=== PATIENT | female | born 1980 | race Caucasian/White ===

== ENCOUNTER 2016-09-16 11:43 | Day surgery (SDC) | payer OTHER ==
[~2016-09-16 11:43] MED LIST: ALPR0.5T PO; CYCL10TA2 PO; HYDR-971 PO; METF-620 PO; OMEP20CA5 PO; Oxycodone Hcl/Acetaminophen PO; RANI150T6 PO; VENTOLIN HFA18 GM IH
[2016-09-16] MEDS ORDERED: IV RINGERS,LACTATED 1000ML 1,000 ML IV SCH (11:48)
[2016-09-16] MEDS ORDERED: LIDOCAINE 1% 1 ML SYRINGE. ID PRN (12:00)
[2016-09-16] MEDS ORDERED: ONDANSETRON PF 4 MG/2 ML VIAL. IV PRN (12:00)
[2016-09-16] MEDS ORDERED: HYDROmorphone 2 MG/ML VIAL IV PRN (12:00)
[2016-09-16] MEDS ORDERED: fentaNYL PF VIAL 100 MCG/2 ML VIAL IV PRN (12:00)
[2016-09-16] MEDS ORDERED: PROCHLORPERAZINE 10 MG/2 ML VIAL. IV PRN (12:00)
[2016-09-16] MEDS ORDERED: PRAM0.255 PO (12:16)
[2016-09-16] MEDS ORDERED: METF100010 PO (12:17)
[2016-09-16] MEDS ORDERED: PROAIR HFA8.5 GM INH (12:17)
[2016-09-16] MEDS ORDERED: fentaNYL PF VIAL 100 MCG/2 ML VIAL ONE (12:37)
[2016-09-16] MEDS ORDERED: DESFLURANE 31 TO 60 MINUTES IH ONE (12:38)
[2016-09-16] MEDS ORDERED: ONDANSETRON PF 4 MG/2 ML VIAL. ONE (12:38)
[2016-09-16] MEDS ORDERED: LIDOCAINE 2% PF Vial for OR 5 ML VIAL. ONE ×2 (12:38→13:23)
[2016-09-16] MEDS ORDERED: DEXAMETHASONE SOD PHOS 20 MG/5 ML VIAL. ONE (12:38)
[2016-09-16] MEDS ORDERED: SUCCINYLCHOLINE 200 MG/10 ML VIAL. ONE (12:38)
[2016-09-16] MEDS ORDERED: PROPOFOL 20 ML IV ONE (12:38)
[2016-09-16] MEDS ORDERED: BUPIVACAINE-EPI 0.5%-1:200000 50 ML VIAL. ONE (13:11)
[2016-09-16] MEDS ORDERED: MIDAZOLAM HCL/PF 2 MG/2 ML VIAL. ONE (13:13)
[2016-09-16] MEDS ORDERED: NEOMY/BACITR/POLYMYXIN OINT PACKET. TP ONE (13:20)
[2016-09-16] MEDS: MORPHINE SULFATE 2 MG/ML DISP.SYRIN. IV PRN ×2 (13:47→14:00)
[2016-09-16] MEDS: fentaNYL PF VIAL 100 MCG/2 ML VIAL IV PRN ×2 (13:47→14:00)
[2016-09-16] MEDS ORDERED: HYDROcodone/APAP 7.5/325MG 1 TAB TABLET ONE (14:38)
--- NOTE | 2016-09-16 14:40 | DISCH ---
DISCHARGE INSTRUCTIONS Condition on Discharge Condition on Discharge: Stable Activity After Discharge Activity Instructions for Disc: Activity as tolerated, Avoid exertion Lifting Instructions after Dis: No heavy lifting Driving Instructions after Dis: Do not drive today Diet after Discharge Diet after Discharge: Diabetic No Calorie Level Wound Incision Care Wound/Incision Care: Ice to area for comfort Other wound/incision instructi: change packing daily Follow-Up Follow up with: Shravan in [place] office next 09/22 TE MEJIA MD Sep 16, 2016 14:40
[2016-09-16 14:45] VITALS: BP 121/69
[2016-09-16] MEDS ORDERED: HYDROcodone/APAP 7.5/325MG 1 TAB TABLET PO ONE (14:45)
--- NOTE | 2016-09-16 14:47 | PDOC4 ---
Operative Note Operative Note Date of procedure: September 16, 2016 Procedure: Debridement pilonidal abscess Preoperative diagnosis: Pilonidal abscess Postoperative diagnosis: Same with extension to the left of the midline Surgeon: Abdiaziz Anesthesia: Gen. endotracheal Indications: Pain, fullness, erythema, warmth in the supragluteal cleft extending to the left of the midline Operative report: Patient brought to the operating suite and given a general endotracheal anesthetic. Placed in the prone position. Supragluteal area prepped and draped in usual sterile fashion. Half percent Marcaine with epinephrine infiltrated around the process for postoperative analgesia. After using an 18-gauge needle to sound the abscess an 11 blade was used to open the abscess and immediately extruded a moderate amount of purulent drainage. Cultures were taken. Blunt dissection to the left of the process led to the abscess extension and a counter incision was made for placement of a [place] drain. The wound was irrigated evacuated and checked for adequate hemostasis. When present the Héctor drain was looped through the abscess cavity out the counterincision and secured with a silk stitch. Wound was dressed with antibiotic ointment and half-inch plain Nu Gauze. Sterile dressing applied. Patient taken out of the prone position and awakened from her anesthetic. Taken to the postoperative stable condition. TE MEJIA MD Sep 16, 2016 14:47
[2016-09-16 14:52] LABS: NEG OBC UR NEG; POS OBC UR POS
== END 2016-09-16 14:59 | disposition home or self-care (01) ==
LOC: SURG 11:43
PROVIDERS: ATTEND Surgery
DX: L05.01 Pilonidal cyst with abscess (principal); Z86.69 Personal history of other diseases of the nervous system and sense organs; I10 Essential (primary) hypertension; J44.9 Chronic obstructive pulmonary disease, unspecified; J45.909 Unspecified asthma, uncomplicated; E66.9 Obesity, unspecified; Z68.36 Body mass index [BMI] 36.0-36.9, adult; E11.9 Type 2 diabetes mellitus without complications; F41.9 Anxiety disorder, unspecified; F17.200 Nicotine dependence, unspecified, uncomplicated; Z72.89 Other problems related to lifestyle; Z72.0 Tobacco use; Z91.048 Other nonmedicinal substance allergy status; Z87.39 Personal history of other diseases of the musculoskeletal system and connective tissue
CPT/HCPCS: 10080; 81025; 82962; 87071; 87075; 87205; C1769; J0330; J0690; J0780; J1100; J2001; J2250; J2270; J2405; J2704; J3010; J7120